=== PATIENT | male | born 1990 | race Caucasian/White ===

== ENCOUNTER 2016-09-28 17:45 | Emergency (ER) | payer OTHER ==
[2016-09-28 18:22] VITALS: TEMP 98
[2016-09-28] MEDS ORDERED: PROPARACAINE 0.5% OPHTH DROPS 15 ML BTL LEFT EYE STA (20:11)
--- NOTE | 2016-09-28 20:18 | ED ---
General Adult HPI - General Chief complaint: Eye Problems Stated complaint: FB in eye Time Seen by Provider: 09/28/16 20:07 Source: patient, RN notes reviewed Mode of arrival: ambulatory Limitations: no limitations - History of Present Illness Initial comments: This is a 25-year-old male who presents with foreign body to the right eye. Patient states he was at work yesterday and got metal in the right eye. Patient states it wasn't bothering him yesterday but it is uncomfortable today. Patient states he is up-to-date on his tetanus shot. Patient denies any visual changes to the right eye. Patient denies any recent fever, chills, shortness breath, chest pain, abdominal pain, nausea/vomiting/diarrhea, back pain, numbness, tingling, hematuria, headache or any other complaints. - Related Data Previous Rx's Medication Instructions Recorded Erythromycin Ophth Oint [Romycin 1 applic RIGHT EYE QID 5 Days 09/28/16 Ophth Oint] Allergies Allergy/AdvReac Type Severity Reaction Status Date / Time No Known Allergies Allergy Verified 09/28/16 18:22 Review of Systems ROS Statement: Those systems with pertinent positive or pertinent negative responses have been documented in the HPI. ROS Other: All systems not noted in ROS Statement are negative. Past Medical History Past Medical History: Asthma Additional Past Medical History / Comment(s): hep. c History of Any Multi-Drug Resistant Organisms: MRSA Date of last positivie culture/infection: 2008 MDRO Source:: neck Past Surgical History: No Surgical Hx Reported Past Psychological History: No Psychological Hx Reported Smoking Status: Current every day smoker Past Alcohol Use History: Occasional Past Drug Use History: Heroin General Exam - General Exam Comments Initial Comments: General: The patient is awake and alert, in no distress, and does not appear acutely ill. Eye: Right eye is erythematous. No foreign body noted with eyelid eversion. Pupils are equal, round and reactive to light, extra-ocular movements are intact. No nystagmus. There is normal conjunctiva bilaterally. No signs of icterus. Ears: TMs pink and pearly with intact cone of light bilaterally. Normal external ear canals Nose: Nasal turbinates pink and moist Mouth and throat: There are moist mucous membranes and no oral lesions. Neck: The neck is supple, there is no tenderness or JVD. Cardiovascular: There is a regular rate and rhythm. No murmur, rub or gallop is appreciated. Respiratory: Lungs are clear to auscultation, respirations are non-labored, breath sounds are equal. No wheezes, stridor, rales, or rhonchi. Musculoskeletal: Normal ROM, no tenderness. Strength 5/5. Sensation intact. Radial pulses equal bilaterally 2+. Neurological: A&O x 3. CN II-XII intact, There are no obvious motor or sensory deficits. Coordination appears grossly intact. Speech is normal. Skin: Skin is warm and dry and no rashes or lesions are noted. Psychiatric: Cooperative, appropriate mood & affect, normal judgment. Limitations: no limitations Course Vital Signs 09/28/16 09/28/16 09/28/16 18:20 21:18 21:19 Temperature 98.0 F 98.0 F 98.0 F Pulse Rate 79 84 86 Respiratory 20 16 18 Rate Blood Pressure 121/67 118/68 120/70 O2 Sat by Pulse 98 98 99 Oximetry Procedures - Procedures Initial comment: Fluorescein stain was then applied and to the right eye and observed under the Hitchcock lamp. Corneal abrasion is noted to be 4 o'clock position. At this time a slit-lamp exam was performed. There is a rust ring noted when viewed with the slit lamp to the 4 o'clock position but no metal foreign body. The [place] brush was used to attempt removal of the rust ring but the entire rust ring was unable to be removed. No foreign body noted with eyelid eversion. Patient tolerated the procedure well. Medical Decision Making - Medical Decision Making This is a 25-year-old male presents with right eye irritation after getting a metal in his eye yesterday. On physical exam the right eye is erythematous. Patient has difficulty keeping the right eye open due to irritation. Patient states he is up to date on his tetanus shot. Proparacaine was applied and patient noticed relief. Fluorescein stain was then applied and to the right eye and observed under the Hitchcock lamp. Corneal abrasion is noted to be 4 o'clock position. At this time a slit-lamp exam was performed. There is a rust ring noted when viewed with the slit lamp to the 4 o 'clock position but no metal foreign body. The [place] brush was used to attempt removal of the rust ring but the entire rust ring was unable to be removed. No foreign body noted with eyelid eversion. Patient tolerated the procedure well. I discussed the patient will need a follow-up with ophthalmology tomorrow. I discussed the patient will be started on erythromycin eye ointment. I discussed Tylenol and Motrin for pain. I discussed return parameters. Discussed that patient should follow up with PCP in one to 2 days or return to the [facility] for any worsening symptoms or any further concerns. Patient was receptive to this plan patient was discharged home. I discussed this case with attending physician Dr. Traylor who agrees with plan as stated above. Disposition Clinical Impression: Corneal rust ring, Corneal abrasion Disposition: HOME SELF-CARE Condition: Good Instructions: Corneal Abrasion (ED) Additional Instructions: Please use erythromycin eye ointment 4 times daily. Please follow-up with ophthalmology tomorrow. Please use Tylenol and Motrin for any pain. Please use medication as discussed. Please follow-up with family doctor in the next 2 days of symptoms have not improved. Please return to emergency room if the symptoms increase or worsen or for any other concerns. Prescriptions: Erythromycin Ophth Oint [Romycin Ophth Oint] 1 applic RIGHT EYE QID 5 Days Referrals: None,Stated [Primary Care Provider] - 1-2 days Jesika Alexander MD [STAFF PHYSICIAN] - 1-2 days Time of Disposition: 21:04
[2016-09-28] MEDS ORDERED: ERYTHROMYCIN 5 MG/GM OPHTH OINT 3.5 GM TUBE RIGHT EYE STA (21:00)
[2016-09-28 21:20] VITALS: BP 120/70; PULSE 86; RESP 18
== END 2016-09-28 21:19 | disposition home or self-care (01) ==
LOC: EC 17:45
DX: S05.01XA Injury of conjunctiva and corneal abrasion without foreign body, right eye, initial encounter (principal); X58.XXXA Exposure to other specified factors, initial encounter; Y93.H3 Activity, building and construction; Y99.0 Civilian activity done for income or pay; Z86.14 Personal history of Methicillin resistant Staphylococcus aureus infection; F17.200 Nicotine dependence, unspecified, uncomplicated
CPT/HCPCS: 65222; 99283

== ENCOUNTER 2016-10-02 01:21 | Emergency (ER) | payer OTHER ==
[2016-10-02] MEDS ORDERED: ONDANSETRON 4 MG/2 ML VIAL IVP STA (01:41)
[2016-10-02] MEDS ORDERED: SODIUM CHLORIDE 0.9% 1,000 ML IV STA (01:41)
--- NOTE | 2016-10-02 01:44 | ED ---
General Adult HPI - General Chief complaint: Nausea/Vomiting/Diarrhea Stated complaint: Poss Food Poisoning Time Seen by Provider: 10/02/16 01:41 Source: patient, RN notes reviewed Mode of arrival: ambulatory Limitations: no limitations - History of Present Illness Initial comments: Patient's a 25-year-old male who presents emergency room today with chief complaint of symptoms of nausea vomiting. Patient states this started approximately half hour to an hour after eating sushi earlier tonight. Patient states had several episodes of vomiting. Denies any signs of blood. Does admit to cramping in the upper abdomen. Denies any other complaints. Patient denies any recent fever, chills, shortness of breath, chest pain, back pain, numbness or tingling, dysuria or hematuria, constipation or diarrhea, headaches or visual changes, or any other complaints. - Related Data Previous Rx's Medication Instructions Recorded Ondansetron Odt [Zofran ODT] 4 mg PO Q8HR PRN #20 tab 10/02/16 Allergies Allergy/AdvReac Type Severity Reaction Status Date / Time No Known Allergies Allergy Verified 10/02/16 01:33 Review of Systems ROS Statement: Those systems with pertinent positive or pertinent negative responses have been documented in the HPI. ROS Other: All systems not noted in ROS Statement are negative. Past Medical History Past Medical History: Asthma Additional Past Medical History / Comment(s): hep. c History of Any Multi-Drug Resistant Organisms: MRSA Date of last positivie culture/infection: 2008 MDRO Source:: neck Past Surgical History: No Surgical Hx Reported Past Psychological History: No Psychological Hx Reported Smoking Status: Current every day smoker Past Alcohol Use History: Occasional Past Drug Use History: Heroin General Exam - General Exam Comments Initial Comments: General: The patient is awake and alert, in no distress, and does not appear acutely ill. Eye: Pupils are equal, round and reactive to light, extra-ocular movements are intact. No nystagmus. There is normal conjunctiva bilaterally. No signs of icterus. Ears, nose, mouth and throat: There are moist mucous membranes and no oral lesions. Neck: The neck is supple, there is no tenderness or JVD. Cardiovascular: There is a regular rate and rhythm. No murmur, rub or gallop is appreciated. Respiratory: Lungs are clear to auscultation, respirations are non-labored, breath sounds are equal. No wheezes, stridor, rales, or rhonchi. Gastrointestinal: Normal appearance abdomen. Normal bowel sounds. Soft on palpation. Patient does have mild tenderness epigastric. No rebound tenderness. No CVA tenderness. Musculoskeletal: Normal ROM, no tenderness. Strength 5/5. Sensation intact. Pulses equal bilaterally 2+. Neurological: A&O x 3. CN II-XII intact, There are no obvious motor or sensory deficits. Coordination appears grossly intact. Speech is normal. Skin: Skin is warm and dry and no rashes or lesions are noted. Psychiatric: Cooperative, appropriate mood & affect, normal judgment. Limitations: no limitations Course Vital Signs 10/02/16 01:31 Temperature 98.3 F Pulse Rate 100 Respiratory 20 Rate Blood Pressure 115/76 O2 Sat by Pulse 97 Oximetry Medical Decision Making - Medical Decision Making Patient reexamined at this time shows no signs of distress. Patient's labs been reviewed does show 15,000 white count. His had several episodes nausea vomiting prior to arrival. No signs of blood in the emesis. On reexamination patient's abdomen soft. Patient states feeling much better after fluids and Zofran. Will be discharged with nausea medication. Advised to return to emergency room if any symptoms increase worsen or for any other concerns. - Lab Data Result diagrams: 10/02/16 01:45 10/02/16 01:45 Lab Results 10/02/16 10/02/16 Range/Units 01:45 01:45 WBC 15.9 H (3.8-10.6) k/uL RBC 5.80 (4.30-5.90) m/uL Hgb 17.4 (13.0-17.5) gm/dL Hct 52.7 (39.0-53.0) % MCV 90.8 (80.0-100.0) fL MCH 30.0 (25.0-35.0) pg MCHC 33.1 (31.0-37.0) g/dL RDW 14.2 (11.5-15.5) % Plt Count 285 (150-450) k/uL Neutrophils % 71 % Lymphocytes % 21 % Monocytes % 5 % Eosinophils % 2 % Basophils % 0 % Neutrophils # 11.2 H (1.3-7.7) k/uL Lymphocytes # 3.4 (1.0-4.8) k/uL Monocytes # 0.7 (0-1.0) k/uL Eosinophils # 0.3 (0-0.7) k/uL Basophils # 0.1 (0-0.2) k/uL Sodium 143 (137-145) mmol/L Potassium 4.3 (3.5-5.1) mmol/L Chloride 102 (98-107) mmol/L Carbon Dioxide 28 (22-30) mmol/L Anion Gap 13 mmol/L BUN 14 (9-20) mg/dL Creatinine 0.90 (0.66-1.25) mg/dL Est GFR (MDRD) Af Amer >60 (>60 ml/min/1.73 sqM) Est GFR (MDRD) Non-Af >60 (>60 ml/min/1.73 sqM) Glucose 98 (74-99) mg/dL Calcium 9.9 (8.4-10.2) mg/dL Total Bilirubin 1.2 (0.2-1.3) mg/dL AST 50 (17-59) U/L ALT 85 H (21-72) U/L Alkaline Phosphatase 76 (38-126) U/L Total Protein 8.5 H (6.3-8.2) g/dL Albumin 5.2 H (3.5-5.0) g/dL Amylase 58 (30-110) U/L Lipase 79 (23-300) U/L Disposition Clinical Impression: Nausea & vomiting Disposition: TRANSFER TO PSYCH HOSP/UNIT Condition: Good Instructions: Acute Nausea and Vomiting (ED) Additional Instructions: Please use medication as discussed. Please follow-up with family doctor in the next 2 days of symptoms have not improved. Please return to emergency room if the symptoms increase or worsen or for any other concerns. Prescriptions: Ondansetron Odt [Zofran ODT] 4 mg PO Q8HR PRN #20 tab PRN Reason: Nausea Referrals: None,Stated [Primary Care Provider] - 1-2 days Lo Cunha MD [REFERRING] - 1-2 days Time of Disposition: 03:17
[2016-10-02 02:05] LABS: ALT 85 U/L (21-72); AST 50 U/L (17-59); Alkaline Phosphatase 76 U/L (38-126); Amylase 58 U/L (30-110); Anion Gap 13 mmol/L; Basophils # (A) 0.1 k/uL (0-0.2); Basophils % (A) 0 %; Blood Urea Nitrogen 14 mg/dL (9-20); CH 30.8; CHCM 33.9; Calcium 9.9 mg/dL (8.4-10.2); Carbon Dioxide 28 mmol/L (22-30); Chloride 102 mmol/L (98-107); Eosinophils # (A) 0.3 k/uL (0-0.7); Eosinophils % (A) 2 %; Glucose 98 mg/dL (74-99); HCT 52.7 % (39.0-53.0); HDW 2.32; HGB 17.4 gm/dL (13.0-17.5); Luc # (Auto) 0.24; Luc % (Auto) 2; Lymphocytes # (A) 3.4 k/uL (1.0-4.8); Lymphocytes % (A) 21 %; MCHC 33.1 g/dL (31.0-37.0); MCV 90.8 fL (80.0-100.0); Monocytes # (A) 0.7 k/uL (0-1.0); Monocytes % (A) 5 %; Neutrophils # (A) 11.2 k/uL (1.3-7.7); Neutrophils % (A) 71 %; Non-African American GFR(MDRD) >60 (>60 ml/min/1.73 sqM); Potassium 4.3 mmol/L (3.5-5.1); RDW 14.2 % (11.5-15.5); Sodium 143 mmol/L (137-145); Total Bilirubin 1.2 mg/dL (0.2-1.3); Total Protein 8.5 g/dL (6.3-8.2); WBC 15.9 k/uL (3.8-10.6); WBC (Perox) 16.17
--- NOTE | 2016-10-02 02:50 | XR ---
EXAM: XR Abdomen, 2 upright View. CLINICAL HISTORY: Reason: abdominal pain TECHNIQUE: Frontal supine view of the abdomen/pelvis. COMPARISON: No relevant prior studies available. FINDINGS: Intraperitoneal space: No free air. No abnormal calcification in the upper abdomen. Gastrointestinal tract: No focal small bowel dilatation. Few scattered air-fluid levels in small and large bowel loops. Air is seen in the transverse, descending and rectosigmoid region. Bones/joints: Unremarkable. Other findings: Mild retained stool. IMPRESSION: Nonspecific bowel gas pattern. No evidence for obstruction. Mild retained stool. No free air. No radiopaque renal calculus
[2016-10-02] MEDS ORDERED: ONDANSETRON 4 MG ODT STARTER PACK 2 TAB BTL PO STA (03:18)
[2016-10-02 03:29] VITALS: BP 122/65; PULSE 87; RESP 18; TEMP 97
== END 2016-10-02 03:29 ==
LOC: EC 01:21
DX: R11.2 Nausea with vomiting, unspecified (principal); R10.10 Upper abdominal pain, unspecified; F17.200 Nicotine dependence, unspecified, uncomplicated
CPT/HCPCS: 36415; 80053; 82150; 83690; 85025; 74000; 99284; 96374; 96361; J2405; S0119

== ENCOUNTER 2016-12-05 23:57 | Emergency (ER) | payer OTHER ==
[2016-12-06 00:16] VITALS: BP 121/68; PULSE 76; RESP 18; TEMP 97.8
--- NOTE | 2016-12-06 00:34 | ED ---
Skin/Abscess/FB HPI - General Chief complaint: Skin/Abscess/Foreign Body Stated complaint: Poss Post Sx Infection Time Seen by Provider: 12/06/16 00:25 Source: patient, RN notes reviewed Mode of arrival: ambulatory Limitations: no limitations - History of Present Illness Initial comments: 25-year-old male presents for concern for surgical site infection. Patient states he starts little bit of redness and tenderness to have his surgical incisions. Patient had back surgery 2 weeks ago. Patient states he hasn't had any fever chills. Patient states she's noticed mild drainage. Patient states it looked like it may be infected, so he thought that they should be seen. Patient states he has not had any other issues with this.Patient denies any recent fever, chills, shortness of breath, chest pain, back pain, abdominal pain , nausea vomiting, numbness or tingling, dysuria or hematuria, constipation or diarrhea, headaches or visual changes, or any other current symptoms. - Related Data Previous Rx's Medication Instructions Recorded Ondansetron Odt [Zofran ODT] 4 mg PO Q8HR PRN #20 tab 10/02/16 Cephalexin [Keflex] 500 mg PO Q6HR #40 cap 12/06/16 Allergies Allergy/AdvReac Type Severity Reaction Status Date / Time No Known Allergies Allergy Verified 12/06/16 00:15 Review of Systems ROS Statement: Those systems with pertinent positive or pertinent negative responses have been documented in the HPI. ROS Other: All systems not noted in ROS Statement are negative. Past Medical History Past Medical History: Asthma, Liver Disease Additional Past Medical History / Comment(s): hep. c History of Any Multi-Drug Resistant Organisms: MRSA Date of last positivie culture/infection: 2008 MDRO Source:: neck Past Surgical History: Orthopedic Surgery Additional Past Surgical History / Comment(s): back sx r/t fall off roof 2016, hx of heroin use Past Psychological History: No Psychological Hx Reported Smoking Status: Current every day smoker Past Alcohol Use History: Occasional Past Drug Use History: Heroin General Exam Limitations: no limitations Head exam: Present: atraumatic, normocephalic, normal inspection Eye exam: Present: normal appearance, PERRL, EOMI. Absent: scleral icterus, conjunctival injection, periorbital swelling Neck exam: Present: normal inspection. Absent: tenderness, meningismus, lymphadenopathy Respiratory exam: Present: normal lung sounds bilaterally. Absent: respiratory distress, wheezes, rales, rhonchi, stridor Cardiovascular Exam: Present: regular rate, normal rhythm, normal heart sounds. Absent: systolic murmur, diastolic murmur, rubs, gallop, clicks Back exam: Present: full ROM. Absent: normal inspection (Patient appears to have portion site infections. 3 of the 4 days. Meanwhile. Flank is minimal erythema around the area with minimal discharge noted. ), tenderness Neurological exam: Present: alert, oriented X3 Psychiatric exam: Present: normal affect, normal mood Course Vital Signs 12/06/16 00:11 Temperature 97.8 F Pulse Rate 76 Respiratory 18 Rate Blood Pressure 121/68 O2 Sat by Pulse 98 Oximetry Medical Decision Making - Medical Decision Making 25-year-old male presents for what appears to be a possible mild surgical incision site infection. This time we will start patient on Keflex. We discussed Motrin Tylenol for pain. We discussed applying Neosporin to the area. We discussed follow-up with surgery. Return parameters. Patient stated that he understood and all his questions have been answered. He will be discharged. Disposition Clinical Impression: Infection of skin Disposition: HOME SELF-CARE Condition: Stable Instructions: Cellulitis (ED) Additional Instructions: Please use medication as discussed. Please follow up with family doctor if symptoms have not improved over the next two days. Please return to the emergency room if your symptoms increase or worsen or for any other concerns. Prescriptions: Cephalexin [Keflex] 500 mg PO Q6HR #40 cap Referrals: Carlyn Dumont MD [STAFF PHYSICIAN] - 1-2 days Time of Disposition: 00:34
== END 2016-12-06 00:48 | disposition home or self-care (01) ==
LOC: EC 23:57
DX: L08.9 Local infection of the skin and subcutaneous tissue, unspecified (principal); L53.9 Erythematous condition, unspecified; F17.200 Nicotine dependence, unspecified, uncomplicated; Z86.14 Personal history of Methicillin resistant Staphylococcus aureus infection; Z86.19 Personal history of other infectious and parasitic diseases; Z98.890 Other specified postprocedural states
CPT/HCPCS: 99282

== ENCOUNTER 2017-01-11 10:52 | Emergency (ER) | payer OTHER ==
[2017-01-11 11:00] VITALS: RESP 18
--- NOTE | 2017-01-11 11:19 | ED ---
Back Pain HPI - General Chief Complaint: Back Pain/Injury Stated Complaint: Hx BACK Sx, SLIPPED, BACK PAIN Time Seen by Provider: 01/11/17 11:07 Source: patient Limitations: no limitations - History of Present Illness Initial Comments: This 26-year-old white male presents complaining of some back pain. He states that this occurred last evening when he slipped. He states that he caught himself but seemed to twist his back. He developed pain to his left back afterwards. He relates a history of having surgery on November 21 of this year at [facility] and no by. He apparently fell from a roof and fractured his T12 vertebrae. They placed rods in his back for stabilization. He has been doing well since the surgery and is only taking Robaxin currently. He denies any fevers or chills. He denies any paresthesias or leg pain. He denies any bowel or bladder abnormalities. He refuses any pain medications. No other complaints or modifying factors. Per old records he does have a history of heroin abuse. - Related Data Home Medications Medication Instructions Recorded Confirmed Methocarbamol [Robaxin] 750 mg PO TID PRN 01/11/17 01/11/17 Previous Rx's Medication Instructions Recorded Methocarbamol [Robaxin-750] 750 mg PO TID PRN #30 tablet 01/11/17 Allergies Allergy/AdvReac Type Severity Reaction Status Date / Time No Known Allergies Allergy Verified 01/11/17 11:24 Review of Systems ROS Statement: Those systems with pertinent positive or pertinent negative responses have been documented in the HPI. ROS Other: All systems not noted in ROS Statement are negative. Past Medical History Past Medical History: Asthma, Liver Disease Additional Past Medical History / Comment(s): hep. c History of Any Multi-Drug Resistant Organisms: MRSA Date of last positivie culture/infection: 2008 MDRO Source:: neck Past Surgical History: Orthopedic Surgery Additional Past Surgical History / Comment(s): back sx r/t fall off roof 2016, hx of heroin use Past Psychological History: No Psychological Hx Reported Smoking Status: Current every day smoker Past Alcohol Use History: Occasional Past Drug Use History: Heroin General Exam Limitations: no limitations General appearance: alert, in no apparent distress Extremities exam: Present: normal inspection, full ROM. Absent: tenderness, joint swelling, calf tenderness Back exam: Present: normal inspection, tenderness (There is some tenderness noted in the left paraspinal musculature at the T 10 to L2 region.), muscle spasm, paraspinal tenderness. Absent: vertebral tenderness Neurological exam: Present: alert, oriented X3 Psychiatric exam: Present: normal affect, normal mood Skin exam: Present: other (There are for scars noted to the back from previous surgery which are well healing. There is 2 in the lower thoracic region vertically and 2 in the upper lumbar region vertically. No other rash or change in pigmentation noted.) Course Vital Signs 01/11/17 10:55 Temperature 98.9 F Pulse Rate 109 H Respiratory 18 Rate Blood Pressure 142/78 Medical Decision Making - Medical Decision Making The patient was seen and examined. An x-ray was taken of his lumbar and thoracic spine. This does show some post surgical changes. There also is evidence of his compression fracture of T12. He had surgery on his T12 region due to his fall this past October. There is some rightward shift which could be positional or related to some muscle spasm. It does seem as though he does have a degree of muscle spasm noted to his left paraspinal musculature. He is asking for refill of his Robaxin. It is felt that this certainly is reasonable. This felt as though he is stable for discharge with close follow- up with his back surgeon. He understands and leaves in no distress. Disposition Clinical Impression: Back pain, Back sprain, Muscle spasm, Compression fracture of body of thoracic vertebra Disposition: HOME SELF-CARE Condition: Good Instructions: Acute Low Back Pain (ED) Additional Instructions: Please follow-up with your back surgeon within the next week. Prescriptions: Methocarbamol [Robaxin-750] 750 mg PO TID PRN #30 tablet PRN Reason: Pain Referrals: None,Stated [Primary Care Provider] - 1-2 days Time of Disposition: 12:15
--- NOTE | 2017-01-11 12:01 | XR ---
EXAMINATION TYPE: XR thoracic spine 3V, XR lumbar spine 3V DATE OF EXAM: 01/11/2017 COMPARISON: NONE HISTORY: 26-year-old male with pain after fall yesterday. Back surgery on 11/21/2016. FINDINGS: Thoracic spine: There is rightward truncal shift. Slight dextroconvex curvature centered along the mid thoracic spine . 12 rib bearing thoracic vertebral bodies. All pedicles are visualized. There are postsurgical changes of the T11-L1 posterior fusion and vertebral compression deformity of T12 with 50% anterior height loss causing accentuated lower thoracic kyphosis. No other vertebral com pression collapse. No malalignment. Lumbar spine: 5 lumbar type vertebral bodies. Vertebral body heights are preserved and alignment is maintained. Fac et arthropathy lower lumbar spine. IMPRESSION: 1. Thoracic spine: Rightward tracheal shift could be positional or due to muscle spasm/pain. 2. Thoracic spine: Postsurgical changes of T11-L1 posterior fusion. There is a T12 vertebral compress ion fracture causing accentuation of the lower thoracic kyphosis. Correlate as to chronicity. 3. Thoracic and lumbar spine: No additional vertebral compression collapse or malalignment. Facet art hropathy lower lumbar spine.
[2017-01-11 12:31] VITALS: BP 162/84; PULSE 106; TEMP 97.8
== END 2017-01-11 12:20 | disposition home or self-care (01) ==
LOC: EC 10:52
DX: S22.089D Unspecified fracture of T11-T12 vertebra, subsequent encounter for fracture with routine healing (principal); S33.5XXA Sprain of ligaments of lumbar spine, initial encounter; F17.200 Nicotine dependence, unspecified, uncomplicated; Z98.890 Other specified postprocedural states; X50.1XXA Overexertion from prolonged static or awkward postures, initial encounter
CPT/HCPCS: 72070; 72100; 99283

== ENCOUNTER 2017-01-19 00:07 | Emergency (ER) | payer OTHER ==
[2017-01-19 00:28] VITALS: BP 134/82; PULSE 110; RESP 18; TEMP 98.3
--- NOTE | 2017-01-19 00:34 | ED ---
General Adult HPI - General Chief complaint: Recheck/Abnormal Lab/Rx Stated complaint: Drug Rehab/Detox Time Seen by Provider: 01/19/17 00:20 Source: patient, RN notes reviewed Mode of arrival: EMS Limitations: no limitations - History of Present Illness Initial comments: This is a 26-year-old male seen via EMS. Patient states he went to the police and asked to go to rehab for heroin and cocaine abuse. Patient states they have program where they will help him. Patient states the police were unable to find a facility to take him tonight so they called EMS and told him to take him to our facility even though the patient has no complaints. Patient states he just was told to stay here to 6 AM at which point he would leave on his own recognizance and find a ride on his own to [place] to go to rehab. Again patient has no complaints and he is not currently been drinking and he hasn't done any drugs in the last few hours. Patient denies headache patient denies any chest pain difficulty breathing shortness of breath patient denies abdominal pain patient denies nausea vomiting diarrhea. Patient denies any recent fever chills or cough. - Related Data Home Medications Medication Instructions Recorded Confirmed Methocarbamol [Robaxin] 750 mg PO TID PRN 01/11/17 01/11/17 Previous Rx's Medication Instructions Recorded Methocarbamol [Robaxin-750] 750 mg PO TID PRN #30 tablet 01/11/17 Allergies Allergy/AdvReac Type Severity Reaction Status Date / Time No Known Allergies Allergy Verified 01/19/17 00:28 Review of Systems ROS Statement: Those systems with pertinent positive or pertinent negative responses have been documented in the HPI. ROS Other: All systems not noted in ROS Statement are negative. Past Medical History Past Medical History: Asthma, Liver Disease Additional Past Medical History / Comment(s): hep. c History of Any Multi-Drug Resistant Organisms: MRSA Date of last positivie culture/infection: 2008 MDRO Source:: neck Past Surgical History: Orthopedic Surgery, Tonsillectomy Additional Past Surgical History / Comment(s): back sx r/t fall off roof 2016, hx of heroin use Past Psychological History: No Psychological Hx Reported Smoking Status: Current every day smoker Past Alcohol Use History: Occasional Past Drug Use History: Cocaine, Heroin General Exam - General Exam Comments Initial Comments: GENERAL: Patient is well-developed and well-nourished. Patient is nontoxic and well- hydrated and is in no acute distress. ENT: Neck is soft and supple. No significant lymphadenopathy is noted. Oropharynx is clear. Moist mucous membranes. EYES: The sclera were anicteric and conjunctiva were pink and moist. Extraocular movements were intact and pupils were equal round and reactive to light. Eyelids were unremarkable. PULMONARY: Unlabored respirations. Good breath sounds bilaterally. No audible rales rhonchi or wheezing was noted. CARDIOVASCULAR: There is a regular rate and rhythm without any murmurs gallops or rubs. ABDOMEN: Soft and nontender with normal bowel sounds. No palpable organomegaly was noted. There is no palpable pulsatile mass. SKIN: Skin is clear with no lesions or rashes and otherwise unremarkable. NEUROLOGIC: Patient is alert and oriented x3. Cranial nerves II through XII are grossly intact. Motor and sensory are also intact. Normal speech, volume and content. Symmetrical smile. MUSCULOSKELETAL: Normal extremities with adequate strength and full range of motion. LYMPHATICS: No significant lymphadenopathy is noted PSYCHIATRIC: Normal psychiatric evaluation. Patient denies suicidal or homicidal ideations Limitations: no limitations Course Vital Signs 01/19/17 00:20 Temperature 98.3 F Pulse Rate 110 H Respiratory 18 Rate Blood Pressure 134/82 O2 Sat by Pulse 95 Oximetry Disposition Clinical Impression: Heroin abuse, Cocaine abuse Disposition: HOME SELF-CARE Condition: Good Instructions: Narcotic Abuse (ED), Cocaine Abuse (ED) Additional Instructions: Patient should follow-up with a rehabilitation center in the morning as previously scheduled Referrals: None,Stated [Primary Care Provider] - 1-2 days Time of Disposition: 00:35
== END 2017-01-19 00:40 | disposition home or self-care (01) ==
LOC: EC 00:07
DX: F14.10 Cocaine abuse, uncomplicated (principal); F11.10 Opioid abuse, uncomplicated; F17.200 Nicotine dependence, unspecified, uncomplicated; Z86.14 Personal history of Methicillin resistant Staphylococcus aureus infection
CPT/HCPCS: 99284